=== PATIENT | female | born 1965 | race Caucasian/White ===

== ENCOUNTER 2021-01-12 17:28 | Emergency (ER) | payer OTHER ==
[2021-01-12] MEDS ORDERED: AUGMENTIN 875-1 EACH PO (17:50)
== END 2021-01-12 18:00 | disposition home or self-care (01) ==
LOC: ER1 17:28
DX: K04.7 Periapical abscess without sinus (principal); F17.210 Nicotine dependence, cigarettes, uncomplicated
CPT/HCPCS: 99283